=== PATIENT | female | born 1985 | race Caucasian/White ===

== ENCOUNTER 2019-07-11 06:52 | Emergency (ER) | payer OTHER ==
[~2019-07-11] VITALS: Ht 157.5 cm; Wt 72.6 kg
[~2019-07-11 06:52] MED LIST: ERYTHROMYCIN E3.5 G3 OPHTHALMIC; PENICILLIN VK500 M1 PO; TAMIFLU PO; TRAMADOL 50 MG50 MG PO
[2019-07-11 07:47] LABS: URINE BILIRUBIN NEGATIVE (Negative); URINE BLOOD TRACE (Negative); URINE CLARITY CLEAR; URINE COLOR YELLOW; URINE GLUCOSE-RANDOM* NEGATIVE (Negative); URINE KETONES NEGATIVE (Negative); URINE LEUKOCYTES-REFLEX TRACE (Negative); URINE NITRITE-REFLEX NEGATIVE (Negative); URINE PROTEIN (DIPSTICK) NEGATIVE (Negative); URINE SPECIFIC GRAVITY 1.025 (1.005-1.035); URINE UROBILINOGEN 0.2 E.U./dl (0.2-1.0)
[2019-07-11 08:04] LABS: ABSOLUTE NEUTROPHILS 5.1 thou/uL (1.4-8.2); BASOPHILS 0.6 % (0.0-2.0); EOSINOPHILS 1.7 % (0.0-3.0); HEMATOCRIT 41.1 % (37.0-47.0); LYMPHOCYTES 12.6 % (24.0-44.0); MCH 30.4 pg (26.0-34.0); MCV 89.3 fL (80.0-100.0); MONOCYTES 9.5 % (1.0-8.0); PLATELET COUNT 338 thou/uL (150-400); POLYS 75.6 % (36.0-66.0); RBC 4.61 mil/uL (4.20-5.00); RDW 12.2 % (10.5-14.5); WBC 6.7 thou/uL (4.0-11.0)
[2019-07-11 08:12] LABS: CALCIUM 9.1 mg/dL (8.5-10.1); CREATININE 0.8 mg/dL (0.6-1.0); POTASSIUM 3.9 mmol/L (3.5-5.1)
[2019-07-11 08:18] LABS: ALBUMIN 3.1 g/dL (3.4-5.0); TOTAL BILIRUBIN 0.2 mg/dL (<0.1-1.0); TOTAL PROTEIN 7.1 g/dL (6.4-8.2)
[2019-07-11] MEDS ORDERED: CEPACOL SORE T1 EAC7 PO (08:26)
[2019-07-11] MEDS ORDERED: NAPROSYN500 MG PO (08:26)
[2019-07-11 08:30] VITALS: BP 98/54
== END 2019-07-11 08:45 | disposition home or self-care (01) ==
LOC: ER 06:52
PROVIDERS: Emergency Medicine
DX: J02.9 Acute pharyngitis, unspecified (principal); F17.210 Nicotine dependence, cigarettes, uncomplicated

== ENCOUNTER 2019-11-21 06:51 | Emergency (ER) | payer OTHER ==
[~2019-11-21] VITALS: Ht 157.5 cm; Wt 68.0 kg
[~2019-11-21 06:51] MED LIST changes: +CEPACOL SORE T1 EAC7 PO; +NAPROSYN500 MG PO
[2019-11-21 08:23] VITALS: BP 119/87
== END 2019-11-21 08:34 | disposition left against medical advice (07) ==
LOC: ER 06:51
DX: Z53.21 Procedure and treatment not carried out due to patient leaving prior to being seen by health care provider (principal)

== ENCOUNTER 2020-03-09 02:22 | Emergency (ER) | payer OTHER ==
[~2020-03-09] VITALS: Ht 157.5 cm; Wt 68.0 kg
[2020-03-09 02:23] VITALS: BP 124/88
== END 2020-03-09 02:55 | disposition home or self-care (01) ==
LOC: ER 02:22
DX: L55.0 Sunburn of first degree (principal); F17.210 Nicotine dependence, cigarettes, uncomplicated

== ENCOUNTER 2020-05-06 20:10 | Emergency (ER) | payer OTHER ==
[~2020-05-06] VITALS: Ht 157.5 cm; Wt 72.6 kg
[2020-05-06 20:10] VITALS: BP 117/90
== END 2020-05-06 23:48 | disposition left against medical advice (07) ==
LOC: ER 20:10
DX: L23.7 Allergic contact dermatitis due to plants, except food (principal); Z53.21 Procedure and treatment not carried out due to patient leaving prior to being seen by health care provider

== ENCOUNTER 2020-06-17 16:49 | Emergency (ER) | payer OTHER ==
[~2020-06-17] VITALS: Ht 165.1 cm; Wt 68.0 kg
[2020-06-17] MEDS ORDERED: PROMETH-CODEIN 65 ML PO (18:43)
[2020-06-17] MEDS ORDERED: VENTOLIN HFA 1818 GM INH (18:43)
[2020-06-17 18:50] VITALS: BP 116/82
== END 2020-06-17 18:55 | disposition home or self-care (01) ==
LOC: ER 16:49
DX: B34.9 Viral infection, unspecified (principal); Z20.828 Contact with and (suspected) exposure to other viral communicable diseases; R11.2 Nausea with vomiting, unspecified; Z98.890 Other specified postprocedural states; F17.210 Nicotine dependence, cigarettes, uncomplicated; R07.81 Pleurodynia

== ENCOUNTER 2021-05-02 02:15 | Emergency (ER) | payer OTHER ==
[~2021-05-02] VITALS: Ht 157.5 cm; Wt 72.6 kg
[~2021-05-02 02:15] MED LIST changes: +PROMETH-CODEIN 65 ML PO; +VENTOLIN HFA 1818 GM INH
[2021-05-02 04:53] LABS: URINE BILIRUBIN NEGATIVE (Negative); URINE BLOOD NEGATIVE (Negative); URINE CLARITY CLEAR; URINE COLOR YELLOW; URINE GLUCOSE-RANDOM* NEGATIVE (Negative); URINE KETONES NEGATIVE (Negative); URINE LEUKOCYTES-REFLEX NEGATIVE (Negative); URINE NITRITE-REFLEX NEGATIVE (Negative); URINE PROTEIN (DIPSTICK) NEGATIVE (Negative); URINE SPECIFIC GRAVITY 1.025 (1.005-1.035); URINE UROBILINOGEN 0.2 E.U./dl (0.2-1.0)
[2021-05-02 05:33] VITALS: BP 90/56
== END 2021-05-02 05:34 | disposition home or self-care (01) ==
LOC: ER 02:15
PROVIDERS: Student in an Organized Health Care Education/Training Program
DX: U07.1 COVID-19 (principal); F17.210 Nicotine dependence, cigarettes, uncomplicated; Z79.51 Long term (current) use of inhaled steroids

== ENCOUNTER 2021-09-02 09:16 | Emergency (ER) | payer OTHER ==
[~2021-09-02] VITALS: Ht 157.5 cm; Wt 72.6 kg
[2021-09-02 09:20] VITALS: BP 142/91
[2021-09-02] MEDS ORDERED: CELEXA20 MG PO (09:22)
[2021-09-02] MEDS ORDERED: ADDERALL 30 MG30 MG PO (09:23)
[2021-09-02 09:50] LABS: URINE BILIRUBIN NEGATIVE (Negative); URINE BLOOD TRACE (Negative); URINE CLARITY CLEAR; URINE COLOR YELLOW; URINE GLUCOSE-RANDOM* NEGATIVE (Negative); URINE KETONES NEGATIVE (Negative); URINE LEUKOCYTES-REFLEX NEGATIVE (Negative); URINE NITRITE-REFLEX POSITIVE (Negative); URINE PROTEIN (DIPSTICK) NEGATIVE (Negative); URINE SPECIFIC GRAVITY >= 1.030 (1.005-1.035); URINE UROBILINOGEN 0.2 E.U./dl (0.2-1.0)
[2021-09-02 10:15] LABS: CASTS None Seen /LPF (None Seen); SQUAMOUS 0-3 Few /LPF (0-3)
[2021-09-02 10:16] LABS: CRYSTALS None Seen /LPF (None Seen); URINE RBC 1-2 Rare /HPF (NONE SEEN); URINE WBC-REFLEX 0-5 Rare /HPF (0-5)
[2021-09-05] MEDS ORDERED: CEPHALEXIN500 MG PO (10:37)
[2021-09-06 22:06] LABS: SYPHILIS AB Reactive (Non Reactive)
== END 2021-09-02 11:11 | disposition home or self-care (01) ==
LOC: ER 09:16
PROVIDERS: Emergency Medicine
DX: N76.0 Acute vaginitis (principal); F17.210 Nicotine dependence, cigarettes, uncomplicated; Z79.899 Other long term (current) drug therapy

== ENCOUNTER 2021-11-19 08:51 | Emergency (ER) | payer OTHER ==
[~2021-11-19] VITALS: Ht 154.9 cm; Wt 72.6 kg
[~2021-11-19 08:51] MED LIST changes: +ADDERALL 30 MG30 MG PO; +CELEXA20 MG PO; +CEPHALEXIN500 MG PO
[2021-11-19 08:54] VITALS: BP 115/85
== END 2021-11-19 09:53 | disposition home or self-care (01) ==
LOC: ER 08:51
DX: S83.91XA Sprain of unspecified site of right knee, initial encounter (principal); M72.2 Plantar fascial fibromatosis; F17.210 Nicotine dependence, cigarettes, uncomplicated; N83.209 Unspecified ovarian cyst, unspecified side; Z79.899 Other long term (current) drug therapy; W01.0XXA Fall on same level from slipping, tripping and stumbling without subsequent striking against object, initial encounter; Y93.89 Activity, other specified; Y92.89 Other specified places as the place of occurrence of the external cause; Y99.8 Other external cause status